=== PATIENT | female | born 1985 | race Caucasian/White ===

== ENCOUNTER 2020-06-28 18:16 | Emergency (ER) | payer OTHER ==
[~2020-06-28] VITALS: Ht 165.1 cm; Wt 72.3 kg
[2020-06-28] MEDS ORDERED: ONDANSETRON ODT 8 MG ONE (18:53)
[2020-06-28] MEDS ORDERED: NAPROXEN 250 MG TABLET ONE (18:55)
[2020-06-28] MEDS ORDERED: ONDANSETRON ODT 8 MG PO ONE (19:00)
[2020-06-28] MEDS ORDERED: NAPROXEN 500 MG TABLET PO ONE (19:00)
--- NOTE | 2020-06-28 19:07 | NUR ---
PT BACK FROM CT MEDICATED PER MAR
--- NOTE | 2020-06-28 19:23 | NUR ---
Pt A&O x 4. States having a ABREU. Pt states having nausea and vomiting [employer]. Pt states she feels better if she just sits still. Pt with + CSM x 4 extremities. Will monitor.
[2020-06-28 20:41] VITALS: BP 125/64
--- NOTE | 2020-06-28 20:42 | NUR ---
Patient/Caregiver given discharge instructions and they have confirmed that they understand the instructions. Patient ambulatory with steady gait.
== END 2020-06-28 20:44 | disposition home or self-care (01) ==
LOC: ED 20:10
DX: G44.319 Acute post-traumatic headache, not intractable (principal); R11.2 Nausea with vomiting, unspecified; R19.7 Diarrhea, unspecified
CPT/HCPCS: 70450; 99284; Q0162